=== PATIENT | male | born 1945 ===

== ENCOUNTER 2018-05-05 15:36 | Outpatient (CLI) | payer OTHER, BC ==
[~2018-05-05] VITALS: Ht 177.8 cm; Wt 90.7 kg
== END 2018-05-05 16:00 | disposition home or self-care (01) ==
LOC: OFIC 805 15:36
DX: H72.90 Unspecified perforation of tympanic membrane, unspecified ear (principal); H91.90 Unspecified hearing loss, unspecified ear